=== PATIENT | female | born 1940 | race Asian ===

== ENCOUNTER 2019-08-19 09:35 | Emergency (ER) | payer OTHER, BC ==
[~2019-08-19] VITALS: Ht 162.6 cm; Wt 74.4 kg
[2019-08-19 10:22] VITALS: BP_SYST 157
--- NOTE | 2019-08-19 10:28 | NUR ---
PATIENT TO WAITING ROOM, STABLE; UNCHANGED
--- NOTE | 2019-08-19 10:33 | NUR ---
PATIENT TO ER #6
--- NOTE | 2019-08-19 10:35 | NUR ---
Patient presents to ER C/O sore throat and headache Patient A&Ox4, ambulatory to ER, afebrile, skin pink and warm, denies N/V/D, pain 09/23. Patient states sore throat and headache x3 days.
--- NOTE | 2019-08-19 10:40 | NUR ---
ER Dr. King at bedside examining patient.
[2019-08-19 11:40] VITALS: BP_SYST 154
--- NOTE | 2019-08-19 11:40 | NUR ---
Patient given written and verbal discharge instructions and verbalizes understanding. ER MD discussed with patient the results and treatment provided. Patient in stable condition. ID arm band removed. Rx of Zithromax &Cepacol given. Patient educated on pain management and to follow up with PMD. Pain Scale 3/10. Opportunity for questions provided and answered. Medication side effect fact sheet provided.
== END 2019-08-19 11:40 | disposition home or self-care (01) ==
LOC: SED 09:35
DX: K12.2 Cellulitis and abscess of mouth (principal); E11.9 Type 2 diabetes mellitus without complications; I10 Essential (primary) hypertension
CPT/HCPCS: 99283

== ENCOUNTER 2019-08-25 14:39 | Emergency (ER) | payer OTHER, BC ==
[~2019-08-25] VITALS: Ht 154.9 cm; Wt 74.8 kg
[2019-08-25 14:58] VITALS: BP_SYST 120
--- NOTE | 2019-08-25 15:05 | NUR ---
ER Dr. Stephenson at bedside examining patient.
--- NOTE | 2019-08-25 15:10 | NUR ---
Patient A&O x 4, ambulated to ER bed 7. Patient complains of difficulty breathing and cough for three days ago while laying down at night. Patient recently completed zpak for respiratory infection. Patient denies nausea vomiting and diarrhea. 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 Patient states shortness of breath increases while walking. Patient says she has hx of emphysema, diabetes, high blood pressure. Patient states she feels relief after first breathing treatment. Patient lying comfortably in bed. Will continue to monitor.
[2019-08-25] MEDS ORDERED: methylPREDNISolone SOD SUCC/PF 62.5 MG/ML VIAL IVP ONE (15:30)
[2019-08-25] MEDS ORDERED: NS 500 ML IV ONE (15:30)
[2019-08-25] MEDS ORDERED: MAGNESIUM SULFATE 50 ML IV ONE (15:30)
[2019-08-25] MEDS ORDERED: IPRATROPIUM/ALBUTEROL SULFATE 3 ML AMPUL.NEB (DUONEB) INH ONE (15:30)
--- NOTE | 2019-08-25 15:50 | NUR ---
# 20 gauge angiocath placed to RAC. Use of asceptic technique. Opsite placed over site. Blood return noted. Blood, BLOOD CULTURE, AND LACTIC for lab drawn from site. Flushed with 10 cc of normal saline. No evidence of infiltration noted. Patient tolerated well.
[2019-08-25 16:15] LABS: BILIRUBIN,URINE NEGATIVE (NEGATIVE); BLOOD, URINE NEGATIVE (NEGATIVE); COLOR,URINE YELLOW (YELLOW); GLUCOSE,URINE NEGATIVE (NEGATIVE); KETONES,URINE NEGATIVE (NEGATIVE); LEUKOCYTE ESTERASE ,URINE TRACE (NEGATIVE); NITRITE, URINE NEGATIVE (NEGATIVE); PH,URINE 6.5 (5.0-8.0); PROTEIN URINE NEGATIVE (NEGATIVE); UROBILINOGEN,URINE 0.2 (0.2-1.0)
[2019-08-25 16:19] LABS: CLARITY/URINE SLIGHTLY HAZY (CLEAR)
[2019-08-25 16:44] LABS: BASOPHILS # (AUTO) 0.1 K/uL (0.0-0.2); BASOPHILS % (AUTO) 0.8 % (0.0-2.0); EOSINOPHILS # (AUTO) 0.2 K/uL (0.0-0.4); EOSINOPHILS % (AUTO) 2.6 % (0.0-4.0); HEMATOCRIT 42.4 % (36-48); LYMPHOCYTES # (AUTO) 2.5 K/uL (1.0-5.5); LYMPHOCYTES % (AUTO) 28.8 % (20.5-51.5); MEAN CORPUSCULAR HEMOGLOBIN 31 pg (27-31); MEAN CORPUSCULAR HGB CONC 33 % (32-36); MEAN CORPUSCULAR VOLUME 92 fL (79.0-98.0); MONOCYTES # (AUTO) 0.6 K/uL (0.0-1.0); MONOCYTES % (AUTO) 6.8 % (1.7-9.3); NEUTROPHILS # (AUTO) 5.3 K/uL (1.8-7.7); PLATELET COUNT (AUTO) 325 K/uL (130-430); RED CELL DISTRIBUTION WIDTH 12.7 % (9.0-15.0); WHITE BLOOD COUNT (AUTO) 8.7 K/uL (4.8-10.8)
[2019-08-25 16:49] LABS: ANION GAP 10 (5-15); CHLORIDE 98 mmol/L (98-107); CREATININE 1.17 mg/dL (0.55-1.30); GLUCOSE 178 mg/dL (70-99); POTASSIUM 3.7 mmol/L (3.5-5.1); SODIUM SERUM 136 mmol/L (136-145); UREA NITROGEN, BLOOD 25 mg/dL (8-21)
[2019-08-25 16:55] LABS: ALANINE AMINOTRANSFERASE 23 U/L (12-78); ALBUMIN 3.7 g/dL (3.4-4.8); ASPARTATE AMINOTRANSFERASE 24 U/L (10-37); TOTAL BILIRUBIN 0.5 mg/dL (0.0-1.0)
[2019-08-25 16:59] LABS: PROTHROMBIN TIME 9.7 SECS (9.5-12.5)
--- NOTE | 2019-08-25 17:12 | NUR ---
Patient ambulated to bathroom with steady gait. Reports relief of difficulty breathing. Vital signs stable.
[2019-08-25 17:39] LABS: RBC,URINE 0-3 /HPF (0-3)
[2019-08-25 17:40] LABS: BACTERIA,URINE FEW /HPF (None Seen); MUCUS,URINE None Seen /LPF (None Seen)
[2019-08-25 17:53] VITALS: BP_SYST 138
--- NOTE | 2019-08-25 17:53 | NUR ---
Patient given written and verbal discharge instructions and verbalizes understanding. ER MD discussed with patient the results and treatment provided. Patient in stable condition. ID arm band removed. IV catheter removed intact and dressing applied, no active bleeding. Rx of Prednisone given. Patient educated on prescriptions and to follow up with PMD. Opportunity for questions provided and answered. Medication side effect fact sheet provided.
== END 2019-08-25 17:53 | disposition home or self-care (01) ==
LOC: SED 14:39
DX: J44.1 Chronic obstructive pulmonary disease with (acute) exacerbation (principal); I10 Essential (primary) hypertension; E11.9 Type 2 diabetes mellitus without complications
CPT/HCPCS: 36415; 71045; 80053; 81000; 83605; 85025; 85610; 85730; 87040; 87086; 93005; 94640; 96365; 96366; 96375; 99285; J2930; J3475; J7040